=== PATIENT | male | born 1955 | race Caucasian/White ===

== ENCOUNTER 2019-10-22 07:31 | Day surgery (SDC) | payer MEDICARE, OTHER ==
[~2019-10-22 07:31] MED LIST: Metoclopramide 10 MG/2 ML SDV IV PRN; Sodium Chloride 0.9% 1,000 ML IV SCH
[2019-10-22] MEDS ORDERED: Propofol 1,000 MG/100 ML SDV ONE (09:15)
[2019-10-22 09:36] VITALS: PULSE 69
[2019-10-22 10:26] VITALS: BP 167/103
--- NOTE | 2019-10-22 16:36 | OR ---
DATE OF OPERATION: 10/22/2019 SURGEON: Tato Nielsen MD PREOPERATIVE DIAGNOSIS: Screening colonoscopy, family history of colon cancer. POSTOPERATIVE DIAGNOSIS: Screening colonoscopy, family history of colon cancer. PROCEDURE: Colonoscopy. ANESTHESIA: MAC. ESTIMATED BLOOD LOSS: None. COMPLICATIONS: None. INDICATION FOR THE PROCEDURE: The patient is a 64-year-old male, here today for screening colonoscopy. Last colonoscopy was 5 years ago, found to have diverticulitis at that time. He has not had any further episodes of diverticulitis. Does have a family history of colon cancer in his mother diagnosed around the age 60. Otherwise, denies any change in bowel habits. Has not previously had any polyps. DESCRIPTION OF PROCEDURE: Informed consent was obtained from the patient. The patient was taken into the operating room, placed on table in left lateral decubitus position. Monitored anesthesia care was administered. Digital rectal exam was performed, it was normal. Colonoscope was then advanced through the anus, directed towards the cecum. Cecum was reached and identified by appendiceal orifice and ileocecal valve. Colonoscope was then slowly withdrawn. He did have a small and large diverticula throughout the colon extending to the ascending colon, however, mild in the ascending and transverse colon, did have moderately severe diverticulosis in the sigmoid colon. Otherwise, no areas of inflammation. No ischemia. No AV malformations. No masses. No polyps. He did have some slightly enlarged internal hemorrhoids in the rectum as well. The colonoscope was then withdrawn. FINDINGS: Diverticulosis throughout the colon, worse in the sigmoid. RECOMMENDATIONS: We would recommend repeat screening colonoscopy in 5 years due to family history of colon cancer and also would recommend plenty of water, high-fiber diet, and avoid constipation due to his diverticula. DEANNE/BAO /[id number]
== END 2019-10-22 10:30 | disposition home or self-care (01) ==
LOC: LB.SDS 07:31
PROVIDERS: ATTEND Surgery
DX: Z12.11 Encounter for screening for malignant neoplasm of colon (principal); K57.30 Diverticulosis of large intestine without perforation or abscess without bleeding; N52.9 Male erectile dysfunction, unspecified; E11.9 Type 2 diabetes mellitus without complications; I10 Essential (primary) hypertension; Z79.899 Other long term (current) drug therapy; Z79.84 Long term (current) use of oral hypoglycemic drugs; Z80.0 Family history of malignant neoplasm of digestive organs; Z88.0 Allergy status to penicillin; Z98.890 Other specified postprocedural states; Z87.19 Personal history of other diseases of the digestive system
CPT/HCPCS: 82962; G0105; J2704; J7030

== ENCOUNTER 2021-06-14 09:50 | Emergency (ER) | payer MEDICARE ==
[2021-06-14] MEDS ORDERED: Ketorolac 30 MG/ML SDV IM ONE (10:30)
[2021-06-14] MEDS ORDERED: Ondansetron 4 MG/2 ML SDV IVPUSH ONE (10:35)
[2021-06-14] MEDS ORDERED: Sodium Chloride 0.9% 10 ML Syringe FLUSH PRN (10:57)
[2021-06-14] MEDS ORDERED: Sodium Chloride 0.9% 1,000 ML IV ONE (10:57)
[2021-06-14] MEDS ORDERED: Ketorolac 30 MG/ML SDV ONE (10:58)
[2021-06-14] MEDS ORDERED: Ondansetron 4 MG/2 ML SDV ONE (10:58)
[2021-06-14] MEDS ORDERED: traMADol 50 MG Tab PO PRN (11:07)
[2021-06-14] MEDS ORDERED: metroNIDAZOLE/Normal Saline 500 MG in Premix Bag 1 BAG IV SCH (11:15)
[2021-06-14] MEDS ORDERED: metroNIDAZOLE/Normal Saline 100 ML IV SCH (11:30)
[2021-06-14] MEDS ORDERED: metFORMIN 500 MG Tab PO SCH (12:00)
[2021-06-14] MEDS ORDERED: Morphine 2 MG/ML SYRINGE IVPUSH ONE (12:52)
[2021-06-14 13:04] VITALS: BP 172/94; PULSE 102
[2021-06-14] MEDS ORDERED: Morphine 2 MG/ML SYRINGE ONE ×2 (13:06→13:20)
[2021-06-14] MEDS ORDERED: LORazepam 0.5 MG Tab ONE (13:11)
[2021-06-14] MEDS ORDERED: Cefepime 2 GM in Sodium Chloride 0.9% 50 ML IV SCH (20:00)
== END 2021-06-14 13:20 ==
LOC: LB.ED 09:50
DX: K57.32 Diverticulitis of large intestine without perforation or abscess without bleeding (principal); E11.9 Type 2 diabetes mellitus without complications; Z88.0 Allergy status to penicillin; Z79.84 Long term (current) use of oral hypoglycemic drugs
CPT/HCPCS: 36415; 71250; 74176; 80053; 81001; 82947; 83605; 83690; 84484; 85025; 87040; 93005; 96365; 96368; 96372; 96375; 99285; A0425; A0429; J0692; J1885; J2270; J2405; J3490; J7030; U0002

== ENCOUNTER 2025-01-06 09:52 | Day surgery (SDC) | payer MEDICARE ==
[2025-01-06] MEDS ORDERED: Propofol 200 MG/20 ML SDV ONE (11:10)
[2025-01-06 11:26] VITALS: BP 121/88; PULSE 83
== END 2025-01-06 12:26 | disposition home or self-care (01) ==
LOC: LB.SDS 09:52
PROVIDERS: ATTEND Surgery
DX: Z12.11 Encounter for screening for malignant neoplasm of colon (principal); K57.30 Diverticulosis of large intestine without perforation or abscess without bleeding; I10 Essential (primary) hypertension; E11.9 Type 2 diabetes mellitus without complications; Z80.0 Family history of malignant neoplasm of digestive organs; Z88.0 Allergy status to penicillin; Z79.84 Long term (current) use of oral hypoglycemic drugs; Z79.899 Other long term (current) drug therapy
CPT/HCPCS: 82947; J2704; J7030